=== PATIENT | male | born 1990 ===

== ENCOUNTER 2018-09-30 07:31 | Emergency (ER) | payer MEDICAID, OTHER ==
[~2018-09-30] VITALS: Ht 172.7 cm; Wt 97.6 kg
[2018-09-30 07:37] VITALS: BP 145/84
[2018-09-30] MEDS ORDERED: NEOSPORIN OINT. PKT 1 PACKET ONE (07:47)
--- NOTE | 2018-09-30 08:27 | NUR ---
Patient/Caregiver given discharge instructions and they have confirmed that they understand the instructions. Patient ambulatory with steady gait.
== END 2018-09-30 08:29 | disposition home or self-care (01) ==
LOC: ED 08:23
DX: S40.822A Blister (nonthermal) of left upper arm, initial encounter (principal); S40.821A Blister (nonthermal) of right upper arm, initial encounter; L55.1 Sunburn of second degree; B35.4 Tinea corporis; X58.XXXA Exposure to other specified factors, initial encounter; Y93.89 Activity, other specified; Y92.89 Other specified places as the place of occurrence of the external cause; Y99.8 Other external cause status
CPT/HCPCS: 99283

== ENCOUNTER 2018-10-06 18:05 | Emergency (ER) | payer MEDICAID ==
[~2018-10-06] VITALS: Ht 175.3 cm; Wt 110.0 kg
[2018-10-06 22:53] VITALS: BP 104/72
== END 2018-10-06 22:57 | disposition home or self-care (01) ==
LOC: ED 21:10
DX: F10.229 Alcohol dependence with intoxication, unspecified (principal)
CPT/HCPCS: 36415; 80053; 80307; 85025; 99283

== ENCOUNTER 2020-07-28 13:35 | Emergency (ER) | payer MEDICAID ==
[~2020-07-28] VITALS: Ht 177.8 cm; Wt 90.0 kg
[2020-07-28 13:45] VITALS: BP 111/56
--- NOTE | 2020-07-28 14:12 | NUR ---
Pt to imaging with EMT as pt is continuously attempting to get out of bed. Pt unable to ambulate at this time. MERCEDES Linares has been to bedside for eval.
--- NOTE | 2020-07-28 14:42 | NUR ---
EMT remains at bedside as pt needs constant redirection to stay in bed.
== END 2020-07-28 15:09 | disposition left against medical advice (07) ==
LOC: ED 15:06
DX: S00.33XA Contusion of nose, initial encounter (principal); S00.531A Contusion of lip, initial encounter; S09.90XA Unspecified injury of head, initial encounter; F10.229 Alcohol dependence with intoxication, unspecified; M54.2 Cervicalgia; X58.XXXA Exposure to other specified factors, initial encounter; Y93.89 Activity, other specified; Y92.89 Other specified places as the place of occurrence of the external cause; Y99.8 Other external cause status; Y90.0 Blood alcohol level of less than 20 mg/100 ml
CPT/HCPCS: 70450; 70486; 72125; 99285